=== PATIENT | female | born 1940 | race African-American/Black ===

== ENCOUNTER 2020-02-23 16:10 | Emergency (ER) | payer BC, OTHER ==
[~2020-02-23] VITALS: Ht 162.6 cm; Wt 91.0 kg
[2020-02-23] MEDS ORDERED: FURO40TA5 PO (16:32)
[2020-02-23] MEDS ORDERED: ASPI-1497 PO (16:32)
[2020-02-23] MEDS ORDERED: POTA-79 MT (16:32)
[2020-02-23] MEDS ORDERED: ALLO100T PO (16:32)
[2020-02-23] MEDS ORDERED: SIMV40TA2 MT (16:32)
[2020-02-23] MEDS ORDERED: ISOS30TA6 MT (16:32)
[2020-02-23] MEDS ORDERED: LORA-250 MT (16:32)
[2020-02-23] MEDS ORDERED: FLUT1BLS3 INH (16:32)
[2020-02-23] MEDS ORDERED: CLOP75TA4 PO (16:32)
[2020-02-23] MEDS ORDERED: METO25TA6 MT (16:32)
[2020-02-23] MEDS ORDERED: COLC0.6C3 PO (16:32)
[2020-02-23] MEDS ORDERED: PROPOFOL 10MG/ML 100ML 100 ML IV ONE (16:36)
[2020-02-23] MEDS ORDERED: NOREPINEPHRINE 8MG/250ML PMX 250 ML IV ONE (16:45)
[2020-02-23] MEDS ORDERED: IPRATROPIUM BROMIDE (0.02%) 0.5MG/2.5ML NEB HHN STA (17:18)
[2020-02-23] MEDS ORDERED: METHYLPREDNISOLONE SOD SUCC 125 MG/2 ML VIAL IV STA (17:18)
[2020-02-23] MEDS ORDERED: ALBUTEROL (0.083%) 2.5MG/3ML NEB HHN STA (17:18)
[2020-02-23 17:41] LABS: HEMATOCRIT. 44.9 % (36.0-48.0); HEMOGLOBIN. 12.9 g/dL (12.0-16.0); MEAN CORPUSCULAR HEMOGLOBIN 23.3 pg (28.0-32.0); MEAN PLATELET VOLUME 10.2 fl (7.4-10.4); PLATELET 112 x1000/uL (130-400); RED BLOOD CELL COUNT 5.55 mill/uL (4.2-5.4); RED CELL DISTRIBUTION WIDTH 19.7 % (11.6-14.6)
[2020-02-23 17:48] LABS: CHLORIDE 113 mEq/L (98-107)
[2020-02-23 17:49] LABS: INR 1.7; PROTHROMBIN TIME 17.5 sec (9.6-11.0)
[2020-02-23 18:00] LABS: BG BASE EXCESS -29.9 mmol/L (-2.0-2.0); BG CARBOXYHEMOGLOBIN 0.6 % (0.5-1.5); BG DEOXYHEMOGLOBIN 9.2 % (0.0-5.0); BG FRACTION INSPIRED OXYGEN 100; BG HCO3 ACT 5.4 mmol/L (22.0-26.0); BG METHEMOGLOBIN 0.6 % (0.0-1.5); BG OXYGEN SATURATION 90.7 % (92.0-98.5); BG OXYHEMOGLOBIN 89.6 % (94.0-97.0); BG PCO2 38.6 mmHg (35.0-45.0); BG PH 6.767 (7.350-7.450); BG PO2 102.7 mmHg (75.0-100.0); BG SAMPLE SITE RIGHT BRACHIAL; BG TIDAL VOLUME(mL) 500 mL; BG TOTAL HEMOGLOBIN 14.9 g/dL (12.0-18.0); BG VENT MODE VENT - A/C; BG VENT RATE 20 set
[2020-02-23 18:09] VITALS: BP 153/66
[2020-02-23 18:19] LABS: PLATELET ESTIMATE SLIGHTL
[2020-02-23] MEDS ORDERED: ACETAMINOPHEN 325MG TABLET PO PRN (18:45)
[2020-02-23] MEDS ORDERED: ONDANSETRON HCL 4MG/2ML INJ IV PRN (18:45)
[2020-02-23] MEDS ORDERED: FUROSEMIDE 40MG/4ML VIAL IVP SCH (19:00)
[2020-02-23] MEDS ORDERED: SODIUM POLYSTYRENE SULFONATE 15 G/60 ML BOT PO SCH (20:00)
[2020-02-23] MEDS ORDERED: SODIUM BICARBONATE 150 MEQ in DEXTROSE 5% WATER 1,000 ML IV SCH (20:00)
[2020-02-23] MEDS ORDERED: SODIUM BICARBONATE 8.4% 1 MEQ/ML 50ML SYR IV SCH (20:00)
[2020-02-23 20:28] LABS: HEPATITIS B SURFACE ANTIGEN NEGATIVE
[2020-02-23 20:57] LABS: HEPATITIS A AB IGM NEGATIVE (NEGATIVE)
[2020-02-24] MEDS ORDERED: IPRATROPIUM/ALBUTEROL 0.5-3(2.5)MG/3ML NEB HHN SCH
[2020-02-24] MEDS ORDERED: ASPIRIN 81MG TABLET PO SCH (09:00)
[2020-02-24] MEDS ORDERED: PANTOPRAZOLE SODIUM 40 MG/VIAL IV SCH (09:00)
[2020-02-24] MEDS ORDERED: CLOPIDOGREL 75MG TABLET PO SCH (09:00)
== END 2020-02-23 18:46 | disposition expired ==
LOC: ER 16:10 → CANBEDREQ 20:46
DX: I46.9 Cardiac arrest, cause unspecified (principal); J96.91 Respiratory failure, unspecified with hypoxia; J44.9 Chronic obstructive pulmonary disease, unspecified; I11.9 Hypertensive heart disease without heart failure; Z95.1 Presence of aortocoronary bypass graft; Z98.890 Other specified postprocedural states; Z79.899 Other long term (current) drug therapy
CPT/HCPCS: 36415; 36600; 71045; 80053; 80061; 82375; 82805; 83036; 83605; 83880; 84145; 84443; 84484; 85025; 85610; 86705; 86709; 86803; 87340; 93005; 94644; 99285; J2704; J3490; Z7610; 94002; J7070